=== PATIENT | female | born 1955 | race Caucasian/White ===

== ENCOUNTER 2025-05-10 08:27 | Emergency (ER) | payer OTHER ==
[2025-05-10] MEDS ORDERED: NA CHLORIDE 0.9% 1,000 ML ONE (08:58)
[2025-05-10] MEDS ORDERED: ONDANSETRON 4 MG/2 ML VIAL ONE (08:58)
[2025-05-10] MEDS ORDERED: FAMOTIDINE 20 MG/2 ML VIAL IV ONE (08:58)
[2025-05-10 09:13] LABS: Absolute Lymphocytes (CBC) 1.8 K/uL (0.7-4.9); Hematocrit 44.6 % (36.0-45.0); Hemoglobin 15.2 g/dL (12.0-15.0); MCH 34.0 pg (27.0-35.0); MCHC 34.1 g/dL (32.0-36.0); MCV 99.7 fL (80-100); MPV 8.1 fL (7.6-11.3); Nucleated RBC Absolute Count 0.0 (0-0); Nucleated Red Blood Cells % 0.1 % (0-0); RBC Red Blood Cell Count 4.47 M/uL (3.86-4.86); White Blood Count 8.10 thou/uL (4.3-10.9)
--- NOTE | 2025-05-10 09:35 | RAD REPORT ---
EXAM: Chest Single View HISTORY: 70 years Female COUGH COMPARISON: No prior exams FINDINGS: LUNGS/PLEURA: The lungs are clear. No pleural effusions or pneumothorax. No pulmonary edema. Emphysem a. CARDIAC/MEDIASTINUM: The cardiac silhouette is within normal limits. UPPER ABDOMEN: No significant abnormality. BONES: No acute abnormality. LINES/TUBES/OTHER: N/A IMPRESSION: No evidence of acute cardiopulmonary disease.
[2025-05-10] MEDS ORDERED: NA CHLORIDE 0.9% 100 ML ONE ×2 (09:37→10:51)
[2025-05-10] MEDS ORDERED: PROMETHAZINE INJ 25 MG/ML AMP ONE (09:37)
[2025-05-10 09:46] LABS: PT Prothrombin Time 13.0 SECONDS (10-13.0); Protime INR 1.16
[2025-05-10 09:56] LABS: Influenza A Ag Negative; Influenza B Ag Negative; SARS-CoV-2 Antigen Rapid Res Negative (Negative)
[2025-05-10 09:59] LABS: ALT/SGPT 32.0 U/L (13-56); AST/SGOT 28.0 U/L (15-37); Albumin 3.7 g/dL (3.4-5.0); Albumin/Globulin Ratio 1.0 (1.1-1.8); Alkaline Phosphatase 64.0 U/L (45-117); Anion Gap 10.2 mEq/L (5.0-15.0); BUN Blood Urea Nitrogen 15.0 mg/dL (7-18); Bilirubin Indirect, Calculated 0.7 mg/dL (0.2-0.8); Globulin 3.7 g/dL (2.3-3.5); Glucose Level 119.0 mg/dL (74-106); Lipase 25.0 U/L (13-75); Magnesium 1.9 mg/dL (1.6-2.4); NT PRO-BNP 387.0 pg/mL (<125); Potassium 3.2 mEq/L (3.5-5.1); Troponin High Sensitivity 12.7 pg/mL (<58.9)
--- NOTE | 2025-05-10 10:33 | RAD REPORT ---
EXAMINATION: Abdomen Pelvis W Contrast CLINICAL INDICATION: Female, 70 years old.Abd pain;Nausea / vomiting TECHNIQUE: CT abdomen and pelvis was performed, after the administration of IV contrast, as per [facility] protocol. Axial, sagittal and coronal reconstructions were obtained. One or more of the following dose reduction techniques were used: Automated exposure control, adjustment of the mA and/o r kV according to patient size, and/or iterative reconstruction. Unless otherwise specified, incidental findings do not require dedicated imaging follow-up. [id number]. COMPARISON: No prior exams FINDINGS: LOWER CHEST: No acute process identified. No significant pericardial effusion. UPPER GI: No significant abnormality. LIVER: No significant focal abnormality. GALLBLADDER/BILE DUCTS: No biliary ductal dilatation.? PANCREAS: No mass, ductal dilation, or jayleen-pancreatic fluid. SPLEEN: Unremarkable. ADRENALS: No adrenal masses. KIDNEYS AND URETERS: No hydronephrosis. No suspicious renal mass. Nonobstructing renal calculi. No ur eteral calculi. ABDOMINAL AORTA AND OTHER VESSELS: Moderate atherosclerotic changes without aortic aneurysm. PERITONEUM: No abnormal free fluid. No free air. LYMPH NODES: No pathologic lymphadenopathy. ABDOMINAL WALL: Small fat containing umbilical hernia. SMALL BOWEL/COLON: Mild diffuse colonic wall thickening. Normal appendix. Mild diverticulosis without diverticulitis. No bowel obstruction. URINARY BLADDER: Underdistended but grossly unremarkable. REPRODUCTIVE ORGANS: No pathologic process. MUSCULOSKELETAL: Multilevel degenerative changes in the spine. No acute fracture. ADDITIONAL FINDINGS: None. IMPRESSION: Mild diffuse colonic wall thickening could reflect a mild colitis. No bowel obstruction. Normal bella barnett.
[2025-05-10 10:38] LABS: Sqamous Epithelial <5 /HPF (None Seen); Urine Culture Reflex Order NOT NEEDED; Urine Microscopic Reflex YN ORDER UMIC; Urine WBC Clump Rare /HPF (None Seen); Urine Yeast (Budding) Trace /HPF (None Seen)
[2025-05-10] MEDS ORDERED: CEFTRIAXONE 1000 MG/VIAL ONE (10:50)
--- NOTE | 2025-05-10 11:12 | EDPHYS ---
Physician Documentation [facility] Name: Celena Rivera Age: 70 yrs Sex: Female : 1955 Arrival Date: 05/10/2025 Time: 08:27 Bed 14 Private MD: SHELIA Physician Jimmie Powell HPI: 05/10 11:06 This 70 yrs old Female presents to ER via Ambulatory with complaints of adelaide Vomiting. 11:06 The patient presents to the emergency department with nausea, vomiting, that is adelaide intermittent. Onset: The symptoms/episode began/occurred 1 day(s) ago. Possible causes: unknown. The symptoms are aggravated by nothing. The symptoms are alleviated by nothing. Associated signs and symptoms: The patient has no apparent associated signs or symptoms. Severity of symptoms: At their worst the symptoms were mild moderate in the emergency department the symptoms have improved moderately. The patient has experienced similar episodes in the past, a few times. Historical: - Allergies: 08:45 No Known Allergies; af3 - Home Meds: 08:45 amlodipine 10 mg tablet [Active]; af3 - PMHx: 08:45 Hypertensive disorder; Glaucoma; af3 - Immunization history:: Adult Immunizations up to date. - Infectious Disease History:: Denies. - Social history:: Smoking status: Patient denies any tobacco usage or history of. Patient uses alcohol, occasionally. ROS: 11:07 Constitutional: Negative for fever, chills, and weight loss, Eyes: Negative for injury, adelaide pain, redness, and discharge, ENT: Negative for injury, pain, and discharge, Neck: Negative for injury, pain, and swelling, Cardiovascular: Negative for chest pain, palpitations, and edema, Respiratory: Negative for shortness of breath, cough, wheezing, and pleuritic chest pain, Back: Negative for injury and pain, : Negative for injury, bleeding, discharge, and swelling, MS/Extremity: Negative for injury and deformity, Skin: Negative for injury, rash, and discoloration, Neuro: Negative for headache, weakness, numbness, tingling, and seizure, Psych: Negative for depression, anxiety, suicide ideation, homicidal ideation, and hallucinations, Allergy/Immunology: Negative for hives, rash, and allergies, Endocrine: Negative for neck swelling, polydipsia, polyuria, polyphagia, and marked weight changes, Hematologic/Lymphatic: Negative for swollen nodes, abnormal bleeding, and unusual bruising, 11:07 Abdomen/GI: Positive for nausea and vomiting, Exam: 11:07 Constitutional: This is a well developed, well nourished patient who is awake, alert, adelaide and in no acute distress. Head/Face: Normocephalic, atraumatic. Eyes: Pupils equal round and reactive to light, extra-ocular motions intact. Lids and lashes normal. Conjunctiva and sclera are non-icteric and not injected. Cornea within normal limits. Periorbital areas with no swelling, redness, or edema. ENT: Nares patent. No nasal discharge, no septal abnormalities noted. Tympanic membranes are normal and external auditory canals are clear. Oropharynx with no redness, swelling, or masses, exudates, or evidence of obstruction, uvula midline. Mucous membranes moist. Neck: Trachea midline, no thyromegaly or masses palpated, and no cervical lymphadenopathy. Supple, full range of motion without nuchal rigidity, or vertebral point tenderness. No Meningismus. Chest/axilla: Normal chest wall appearance and motion. Nontender with no deformity. No lesions are appreciated. Cardiovascular: Regular rate and rhythm with a normal S1 and S2. No gallops, murmurs, or rubs. Normal PMI, no JVD. No pulse deficits. Respiratory: Lungs have equal breath sounds bilaterally, clear to auscultation and percussion. No rales, rhonchi or wheezes noted. No increased work of breathing, no retractions or nasal flaring. Abdomen/GI: Soft, non-tender, with normal bowel sounds. No distension or tympany. No guarding or rebound. No evidence of tenderness throughout. Back: No spinal tenderness. No costovertebral tenderness. Full range of motion. Female : Normal external genitalia. Skin: Warm, dry with normal turgor. Normal color with no rashes, no lesions, and no evidence of cellulitis. MS/ Extremity: Pulses equal, no cyanosis. Neurovascular intact. Full, normal range of motion., bilateral aka Neuro: Awake and alert, GCS 15, oriented to person, place, time, and situation. Cranial nerves II-XII grossly intact. Motor strength 5/5 in all extremities. Sensory grossly intact. Cerebellar exam normal. Normal gait. Psych: Awake, alert, with orientation to person, place and time. Behavior, mood, and affect are within normal limits. 11:07 ECG was reviewed by the Attending Physician. Vital Signs: 08:44 BP 175 / 77; Pulse 81; Resp 18; Temp 97.4; Pulse Ox 98% on R/A; Weight 61.69 kg; Height af3 5 ft. 6 in. ; 09:51 BP 168 / 82; Pulse 91; Resp 20; Pulse Ox 100% on R/A; af3 10:46 BP 151 / 70; Pulse 86; Resp 18; Pulse Ox 100% on R/A; af3 11:20 BP 153 / 70; Pulse 84; Resp 18; Pulse Ox 100% on R/A; af3 08:44 Body Mass Index 21.95 (61.69 kg, 167.64 cm) af3 MDM: 08:35 Medical Screening Exam initiated adelaide 11:08 Differential diagnosis: Nonspecific abd pain. Differential Diagnosis sepsis. Data adelaide reviewed: vital signs, nurses notes, lab test result(s). Consideration of Admission/Observation Escalation of care including admission/observation considered. I considered the following discharge prescriptions or medication management in the emergency department Medications were administered in the Emergency Department. See MAR. Independent interpretation of the following test(s) in the Emergency Department. Test considered but Not performed: Ultrasound NO ABD USG. Historians other than the Patient: PT WELL INFORMED. Care significantly affected by the following chronic conditions: Hypertension, GLAUCOMA. 05/10 08:41 Order name: Basic Metabolic Panel; Complete Time: 10:37 [place]elaide 05/10 08:41 Order name: CBC with Diff; Complete Time: 09:16 [place] 05/10 08:41 Order name: LFT's; Complete Time: 10:37 [place] 05/10 08:41 Order name: Magnesium; Complete Time: 10:37 [place] 05/10 08:41 Order name: NT PRO-BNP; Complete Time: 10:37 [place] 05/10 08:41 Order name: PT-INR; Complete Time: 10:37 [place] 05/10 08:41 Order name: Troponin HS; Complete Time: 10:37 [place] 05/10 08:41 Order name: Lipase; Complete Time: 10:37 [place] 05/10 08:41 Order name: UA Rfx Will Cult if indicated; Complete Time: 10:39 [place] 05/10 09:14 Order name: COVID-19 Ag + Flu A+B Ag; [facility]: 10:37 [facility] 05/10 08:41 Order name: XRAY Chest (1 view); Complete Time: 10:37 [facility] 05/10 09:14 Order name: CT Abd/Pelvis - IV Contrast Only; Complete Time: 10:37 [facility] 05/10 08:41 Order name: Cardiac monitoring; Complete Time: 09:10 [facility] 05/10 08:41 Order name: EKG - Nurse/Tech; Complete Time: 09:21 [facility] 05/10 08:41 Order name: IV Saline Lock; Complete Time: 09: [facility] 05/10 08:41 Order name: Labs collected and sent; Complete Time: 09: [facility] 05/10 08:41 Order name: O2 Per Protocol; Complete Time: : [facility] 05/10 08:41 Order name: O2 Sat Monitoring; Complete Time: 09: [facility] 05/10 09:19 Order name: Labs - recollect needed: recollect labs/ hemolyzed per Aminata; Complete eb Time: 09:49 05/10 10:54 Order name: PO challenge: JUICE; Complete Time: 11:03 [facility] EC:07 Rate is 78 beats/min. Rhythm is regular. QRS [place] is Normal. TN interval is normal. QRS [place] interval is normal. QT interval is normal. No Q waves. T waves are Normal. No ST changes noted. Clinical impression: Normal ECG and No evidence of ischemia. Interpreted by me. Reviewed by me. Administered Medications: 09:07 Drug: Famotidine IVP 20 mg IVP once; dilute with 10 mL 0.9% NaCl; give over 2 minutes af3 Route: IVP; Site: right antecubital; 09:21 Follow up: Response: No adverse reaction af3 09:09 Drug: Ondansetron IVP 8 mg IVP once; over 2 minutes {Note: 4mg dose given, pt declined af3 additional 4mg .} Route: IVP; Site: right antecubital; 09:21 Follow up: Response: No adverse reaction af3 09:10 Drug: NS 0.9% IV 1000 ml IV at 1000 ml once; to be given as a bolus over 60 minutes af3 Route: IV; Rate: 1000 ml; Site: right antecubital; 10:44 Follow up: Response: No adverse reaction; IV Status: Completed infusion; IV Intake: af3 1000ml 09:48 Drug: NS 0.9% IV 100 ml IV at bolus once; to be given as a bolus over 10 minutes Route: af3 IV; Rate: bolus; Site: right antecubital; 10:44 Follow up: Response: No adverse reaction; IV Status: Completed infusion; IV Intake: af3 100ml 09:49 Drug: Promethazine IM 25 mg IM once Route: IM; Site: Other; af3 10:44 Follow up: Response: No adverse reaction af3 10:58 Drug: Rocephin IV 1 grams IV at per protocol once; Given slow IV push per pharmacy af3 instructions Route: IV; Rate: per protocol; Site: right antecubital; 11:21 Follow up: Response: No adverse reaction; IV Status: Completed infusion; IV Intake: af3 100ml Disposition Summary: 05/10/25 11:11 Discharge Ordered Notes: Location: Home [place] Problem: new adelaide Symptoms: have improved adelaide Condition: Stable adelaide Diagnosis - Vomiting adelaide - Hypokalemia adelaide - Abdominal pain, unspecified adelaide Followup: adelaide - With: Private Physician - When: 2 - 3 days - Reason: Recheck today's complaints, Continuance of care, Re-evaluation by your physician Discharge Instructions: - Discharge Summary Sheet adelaide - Abdominal Pain, Adult adelaide - Potassium Content of Foods adelaide - Hypokalemia adelaide - Vomiting, Adult adelaide Forms: - Medication Reconciliation Form [place] - Antibiotic Education adelaide - Prescription Opioid Use adelaide - Patient Portal Instructions adelaide - Leadership Thank You Letter [facility] Prescriptions: - ondansetron 4 mg Oral Tablet,disintegrating - take 1 tablet ORAL route every 6 hours as needed for nausea and vomiting; 20 [place]elaide tablet; Refills: 0, Product Selection Permitted - promethazine 25 mg Rectal suppository - insert 1 suppository RECTAL route every 4 to 6 hours as needed for INTRACTABLE adelaide nausea and vomiting; 20 suppository; Refills: 0, Product Selection Permitted Signatures: Dispatcher [employer] Jimmie Strauss MD MD cha Botello, Elizabeth eb Fry, Ashley, RN RN af3 Corrections: (The following items were deleted from the chart) 08:41 08:41 BASIC METABOLIC PANEL+C.LAB.BRZ ordered. EDMS EDMS 08:41 08:41 CBC+H.LAB.BRZ ordered. EDMS EDMS 08:41 08:41 HEPATIC FUNCTION+C.LAB.BRZ ordered. EDMS EDMS 08:41 08:41 MAGNESIUM+C.LAB.BRZ ordered. EDMS EDMS 08:41 08:41 PROBNP+C.LAB.BRZ ordered. EDMS EDMS 08:41 08:41 PROTIME (+INR)+COAG.LAB.BRZ ordered. EDMS EDMS 08:41 08:41 Troponin High Sensitivity+C.LAB.BRZ ordered. EDMS EDMS 08:41 08:41 LIPASE+C.LAB.BRZ ordered. EDMS EDMS 08:41 08:41 UA Rfx Will Cult if indicated+U.LAB.BRZ ordered. EDMS EDMS 08:41 08:41 Chest Single View+RAD.RAD.BRZ ordered. EDMS EDMS
--- NOTE | 2025-05-10 11:12 | ER ---
Nurse's Notes [facility] Name: Celena Rivera Age: 70 yrs Sex: Female : 1955 Arrival Date: 05/10/2025 Time: 08:27 Bed 14 Private MD: Diagnosis: Vomiting;Hypokalemia;Abdominal pain, unspecified Presentation: 05/10 08:44 Chief complaint: Patient states: vomitng and body aches x1 day, unable to keep food and af3 fluids down. Coronavirus screen: At this time, the client does not indicate any symptoms associated with coronavirus-19. Ebola Screen: No symptoms or risks identified at this time. Initial Sepsis Screen: Does the patient meet any 2 criteria? No. Patient's initial sepsis screen is negative. Does the patient have a suspected source of infection? No. Patient's initial sepsis screen is negative. Risk Assessment: Do you want to hurt yourself or someone else? Patient reports no desire to harm self or others. Onset of symptoms was May 09, 2025. 08:44 Method Of Arrival: Ambulatory af3 08:44 Acuity: LISA 3 af3 Triage Assessment: 08:45 General: Appears in no apparent distress. uncomfortable, well groomed, well developed, af3 Behavior is calm, cooperative, appropriate for age. Pain: Denies pain. Neuro: Level of Consciousness is awake, alert, obeys commands, Oriented to person, place, time, situation, Appropriate for age. Cardiovascular: Patient's skin is warm and dry. Respiratory: Airway is patent Respiratory effort is even, unlabored, Respiratory pattern is regular, symmetrical. GI: Reports vomiting. Historical: - Allergies: 08:45 No Known Allergies; af3 - Home Meds: 08:45 amlodipine 10 mg tablet [Active]; af3 - PMHx: 08:45 Hypertensive disorder; Glaucoma; af3 - Immunization history:: Adult Immunizations up to date. - Infectious Disease History:: Denies. - Social history:: Smoking status: Patient denies any tobacco usage or history of. Patient uses alcohol, occasionally. Screenin:45 [facility] ED Fall Risk Assessment (Adult) History of falling in the last 3 months, af3 including since admission No falls in past 3 months (0 pts) Confusion or Disorientation No (0 pts) Intoxicated or Sedated No (0 pts) Impaired Gait No (0 pts) Mobility Assist Device Used No (0 pt) Altered Elimination No (0 pt) Score/Fall Risk Level 0 - 2 = Low Risk. 08:45 Abuse screen: Denies threats or abuse. Denies injuries from another. Nutritional af3 screening: No deficits noted. Tuberculosis screening: No symptoms or risk factors identified. Assessment: 08:45 General: see triage assessment. af3 09:00 Reassessment: Patient appears in no apparent distress at this time. Patient and/or af3 family updated on plan of care and expected duration. Pain level reassessed. dry heaving, c/o headache, MD notified . 10:46 Reassessment: Patient appears in no apparent distress at this time. No changes from af3 previously documented assessment. Patient and/or family updated on plan of care and expected duration. Pain level reassessed. Patient is alert, oriented x 3, equal unlabored respirations, skin warm/dry/pink. 11:20 Reassessment: Patient appears in no apparent distress at this time. No changes from af3 previously documented assessment. Patient and/or family updated on plan of care and expected duration. Pain level reassessed. Patient is alert, oriented x 3, equal unlabored respirations, skin warm/dry/pink. Vital Signs: 08:44 BP 175 / 77; Pulse 81; Resp 18; Temp 97.4; Pulse Ox 98% on R/A; Weight 61.69 kg; Height af3 5 ft. 6 in. ; 09:51 BP 168 / 82; Pulse 91; Resp 20; Pulse Ox 100% on R/A; af3 10:46 BP 151 / 70; Pulse 86; Resp 18; Pulse Ox 100% on R/A; af3 11:20 BP 153 / 70; Pulse 84; Resp 18; Pulse Ox 100% on R/A; af3 08:44 Body Mass Index 21.95 (61.69 kg, 167.64 cm) af3 ED Course: 08:30 Patient arrived in ED. al6 08:35 Jimmie Powell MD is Attending Physician. adelaide 08:38 Rosalee Cotton, AGNES is Primary Nurse. af3 08:40 No provider procedures requiring assistance completed. Initial lab(s) drawn, by me, af3 sent to lab. Inserted saline lock: 20 gauge in right antecubital area, using aseptic technique. Blood collected. Flushed with 10 mL NS. 08:45 Triage completed. af3 08:45 Arm band placed on. af3 08:45 Patient has correct armband on for positive identification. Bed in low position. Call af3 light in reach. Provided Education on: call light use . 09:27 XRAY Chest (1 view) In Process Unspecified. EDMS 10:16 CT Abd/Pelvis - IV Contrast Only In Process Unspecified. EDMS 11:20 IV discontinued, intact, bleeding controlled, No redness/swelling at site. Pressure af3 dressing applied. Administered Medications: 09:07 Drug: Famotidine IVP 20 mg IVP once; dilute with 10 mL 0.9% NaCl; give over 2 minutes af3 Route: IVP; Site: right antecubital; 09:21 Follow up: Response: No adverse reaction af3 09:09 Drug: Ondansetron IVP 8 mg IVP once; over 2 minutes {Note: 4mg dose given, pt declined af3 additional 4mg .} Route: IVP; Site: right antecubital; 09:21 Follow up: Response: No adverse reaction af3 09:10 Drug: NS 0.9% IV 1000 ml IV at 1000 ml once; to be given as a bolus over 60 minutes af3 Route: IV; Rate: 1000 ml; Site: right antecubital; 10:44 Follow up: Response: No adverse reaction; IV Status: Completed infusion; IV Intake: af3 1000ml 09:48 Drug: NS 0.9% IV 100 ml IV at bolus once; to be given as a bolus over 10 minutes Route: af3 IV; Rate: bolus; Site: right antecubital; 10:44 Follow up: Response: No adverse reaction; IV Status: Completed infusion; IV Intake: af3 100ml 09:49 Drug: Promethazine IM 25 mg IM once Route: IM; Site: Other; af3 10:44 Follow up: Response: No adverse reaction af3 10:58 Drug: Rocephin IV 1 grams IV at per protocol once; Given slow IV push per pharmacy af3 instructions Route: IV; Rate: per protocol; Site: right antecubital; 11:21 Follow up: Response: No adverse reaction; IV Status: Completed infusion; IV Intake: af3 100ml Medication: 11:20 VIS not applicable for this client. af3 Intake: 10:44 IV: 1000ml; Total: 1000ml. af3 10:44 IV: 100ml; Total: 1100ml. af3 11:21 IV: 100ml; Total: 1200ml. af3 Outcome: 11:11 Discharge ordered by . adelaide 11:20 Discharged to home ambulatory, af3 11:20 Condition: stable 11:20 Discharge instructions given to patient, Instructed on discharge instructions, follow up and referral plans. medication usage, Demonstrated understanding of instructions, follow-up care, medications, Prescriptions given X 2, 11:21 Patient left the ED. af3 Signatures: Dispatcher [employer] EDMS Jimmie Powell MD MD cha Fry, Ashley, RN RN af3 Britt [email or web address] Corrections: (The following items were deleted from the chart) 09:10 09:09 Ondansetron IVP 4 mg IVP in right antecubital af3 af3
[2025-05-10 11:43] VITALS: TEMP 97.4
[2025-05-10 11:45] VITALS: O2SAT 100
[2025-05-10 11:46] VITALS: BP 153/70
== END 2025-05-10 11:21 | disposition home or self-care (01) ==
LOC: ER 08:27
DX: R11.10 Vomiting, unspecified (principal); E87.6 Hypokalemia; R10.9 Unspecified abdominal pain; Z11.52 Encounter for screening for COVID-19
CPT/HCPCS: 96365; 96361; 93005; 85025; 81001; 80048; 36415; 83735; 85610; 80076; 84484; 83690; 83880; 74177; 71045; 96375; 96372; 99284; 87428; Q9967; J2550; J2405; J7030; J0696